=== PATIENT | male | born 1980 | race African-American/Black ===

== ENCOUNTER → 2021-05-31 | Outpatient (CLI) | payer BC | LOC: WOUNDCARE 10:42 | PROVIDERS: ATTEND Nurse Practitioner | DX: S31.30XA Unspecified open wound of scrotum and testes, initial encounter (principal); E10.9 Type 1 diabetes mellitus without complications; F17.200 Nicotine dependence, unspecified, uncomplicated; X58.XXXA Exposure to other specified factors, initial encounter; Y93.89 Activity, other specified; Y92.89 Other specified places as the place of occurrence of the external cause; Y99.8 Other external cause status ==

== ENCOUNTER → 2021-06-07 | Outpatient (CLI) | payer BC | LOC: WOUNDCARE 00:50 | PROVIDERS: ATTEND Nurse Practitioner | DX: S31.30XD Unspecified open wound of scrotum and testes, subsequent encounter (principal); E10.9 Type 1 diabetes mellitus without complications; F17.200 Nicotine dependence, unspecified, uncomplicated; X58.XXXD Exposure to other specified factors, subsequent encounter ==

== ENCOUNTER → 2021-06-15 | Outpatient (CLI) | payer BC | LOC: WOUNDCARE 00:50 | PROVIDERS: ATTEND Nurse Practitioner | DX: N49.2 Inflammatory disorders of scrotum (principal); S31.30XD Unspecified open wound of scrotum and testes, subsequent encounter; E10.9 Type 1 diabetes mellitus without complications; F17.200 Nicotine dependence, unspecified, uncomplicated; X58.XXXD Exposure to other specified factors, subsequent encounter ==

== ENCOUNTER → 2021-06-22 | Outpatient (CLI) | payer BC | LOC: WOUNDCARE 02:50 | PROVIDERS: ATTEND Nurse Practitioner | DX: N49.2 Inflammatory disorders of scrotum (principal); S31.30XD Unspecified open wound of scrotum and testes, subsequent encounter; E10.9 Type 1 diabetes mellitus without complications; F17.200 Nicotine dependence, unspecified, uncomplicated; X58.XXXD Exposure to other specified factors, subsequent encounter ==